=== PATIENT | female | born 1985 | race Caucasian/White ===

== ENCOUNTER → 2016-07-22 | Outpatient (CLI) | payer BC ==
[~2016-07-22] MED LIST: AMPH10CA3 PO; ETON1IMP2; LINA1CAP PO; NAPR-1169 PO; NXM/40 PO; ONDA4TAB46 PO; RANI150T3 PO
== END | disposition home or self-care (01) ==
LOC: C.PAPS 17:54
PROVIDERS: ATTEND Obstetrics & Gynecology
DX: Z01.419 Encounter for gynecological examination (general) (routine) without abnormal findings (principal)

== ENCOUNTER → 2016-07-22 | Outpatient (CLI) | payer BC ==
[2016-07-27 03:24] LABS: CHLAMYDIA TRACH RNA*** NOT DETECTED (NOT DETECTED); GC (NEIS GONORRHOEAE)RNA** NOT DETECTED (NOT DETECTED)
== END | disposition home or self-care (01) ==
LOC: C.LABSPEC 12:47
PROVIDERS: ATTEND Obstetrics & Gynecology
DX: Z11.3 Encounter for screening for infections with a predominantly sexual mode of transmission (principal)

== ENCOUNTER → 2017-01-10 | Day surgery (SDC) | payer BC ==
[2017-01-02 12:23] VITALS: BMI 32.0
[~2017-01-10] VITALS: Ht 172.7 cm; Wt 96.8 kg
[~2017-01-10] MED LIST changes: -ONDA4TAB46 PO
[2017-01-10 12:03] VITALS: Ht 172.7 cm; Wt 96.8 kg
[2017-01-10 15:17] VITALS: BP 136/87; PULSE 89; TEMP 36.7; O2SAT 100
--- NOTE | 2017-01-15 11:38 | OPERATIVE REPORT ---
DATE OF OPERATION: 01/10/2017 PROCEDURE PERFORMED: Lactulose bacterial overgrowth breath test. PRE-PROCEDURE DIAGNOSES: Bloating, abdominal discomfort, changes in bowel habits. 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 Baseline breath hygiene level was determined, this was 4 parts per million. Following a 10 gram dose of lactulose liquid, serial breath hydrogen was obtained. At 20 minutes - 8 ppm, 40 minutes - 8 ppm, 60 minute-8 ppm, 80 minutes - 21 ppm, 100 minutes - 55 ppm, 120 minutes - 62 ppm, 140 minutes - 68 ppm, and 160 minutes - 58 ppm. Bloating was produced from 40 minute exam point through completion. IMPRESSION: Overall, this represented a positive bacterial overgrowth breath test by lactulose testing. The patient's breath hydrogen would approximate at least a 20 part per million rise from baseline at 90 minutes. Results were discussed with the patient at the end of this procedure by me. The patient actually had improvement while on ciprofloxacin for recent urinary tract infection and therefore this may corroborate this finding today. The patient has no known drug allergies. PLAN: We will plan for rifaximin 550 mg 3 times daily for 14 days. The patient will also follow in GI clinic as previously scheduled. An Rx was provided. I attest to the content of the Intraoperative Record and any orders documented therein. Any exceptions are noted below. MTDD
== END | disposition home or self-care (01) ==
LOC: C.GI 11:36
PROVIDERS: ATTEND Internal Medicine Gastroenterology
DX: R14.0 Abdominal distension (gaseous) (principal); R10.9 Unspecified abdominal pain; R19.4 Change in bowel habit

== ENCOUNTER → 2017-06-28 | Outpatient (CLI) | payer BC ==
[~2017-06-28] MED LIST changes: +AMPH10TA2 PO; +CYM/30 PO; +DIVA500T3 PO; +ESOM1CAP34 PO; -ETON1IMP2; +ETON1IMP2 INTRAD; +LRS10 PO; +METH-307 PO; +MRLP17X; +MRLP527 PO; -NAPR-1169 PO; +NAPR-1231 PO; +NAPR-22 PO; +NRN/300 PO; +SUMA6KIT SQ; +TOPI1CAP12 PO; +TRAM-10 PO; +VERA180C2 PO
--- NOTE | 2017-06-28 18:07 | DIAGNOSTIC IMAGING REPORT ---
L-SPINE MIN 4 VIEWS ROUTINE CLINICAL HISTORY: 32 years-old Female presenting with M54.9 low back pain, history of microdiscectomy. TECHNIQUE: Frontal, bilateral oblique, lateral, and coned in lateral views of the lumbar spine were obtained. COMPARISON: CT of the abdomen and pelvis from 11/18/2016. FINDINGS: No scoliosis. Normal lumbar lordosis. Vertebral bodies maintain normal height and alignment. Mild intervertebral disc height loss at L5-S1, which may in part be developmental. No extensive degenerative change. Mild degenerative change suggested at L5-S1. Mild osseous neural foraminal narrowing may also be present at L5-S1. No compression deformity or evidence of subluxation. No pars defect. Postsurgical changes are not radiographically apparent. IMPRESSION: Mild focal degenerative change at L5-S1 with possible osseous neural foraminal narrowing. Electronically signed by: Edilson Collado M.D. 06/28/2017 6:05 PM Dictated Date/Time: 06/28/2017 6:04 PM
--- NOTE | 2017-06-28 18:16 | DIAGNOSTIC IMAGING REPORT ---
SI JOINTS 3 OR MORE VIEWS HISTORY: 32 years-old Female M54.9 acute low back pain with history of prior back surgery COMPARISON: Lumbar spine radiographs of same day TECHNIQUE: 3 views of the SI joints FINDINGS: Mild intervertebral disc space narrowing at L5-S1. The bilateral sacroiliac joints are within normal limits without fracture, significant joint space narrowing or erosive changes identified. Imaged bony pelvis appears intact. Probable phleboliths of the right hemipelvis. IMPRESSION: No acute fracture, subluxation or significant degenerative changes. The above report was generated using voice recognition software. It may contain grammatical, syntax or spelling errors. Electronically signed by: Jigar Cha M.D. 06/28/2017 6:14 PM Dictated Date/Time: 06/28/2017 6:13 PM
== END | disposition home or self-care (01) ==
LOC: C.RAD 17:05
PROVIDERS: ATTEND Family Medicine
DX: M54.5 Low back pain (principal)

== ENCOUNTER 2017-08-04 14:50 | Emergency (ER) | payer BC ==
[~2017-08-04] VITALS: Ht 172.7 cm; Wt 94.0 kg
[~2017-08-04 14:50] MED LIST changes: -AMPH10CA3 PO; -AMPH10TA2 PO; -CYM/30 PO; -DIVA500T3 PO; -ESOM1CAP34 PO; -ETON1IMP2 INTRAD; -LRS10 PO; -METH-307 PO; -MRLP17X; -MRLP527 PO; +NAPR-1169 PO; -NAPR-1231 PO; -NAPR-22 PO; -NRN/300 PO; -SUMA6KIT SQ; -TOPI1CAP12 PO; -TRAM-10 PO; -VERA180C2 PO
[2017-08-04 14:57] VITALS: TEMP 37.1; Ht 172.7 cm; Wt 94.0 kg
[2017-08-04] MEDS ORDERED: ONDANSETRON INJ 2 MG/ML 2 ML VIAL IV STA (17:40)
[2017-08-04] MEDS ORDERED: KETOROLAC TROMETHAMINE 30 MG/ML VIAL IV STA (17:40)
[2017-08-04] MEDS ORDERED: SODIUM CHLORIDE 0.9% 1000ML 1,000 ML IV STA (17:40)
[2017-08-04] MEDS ORDERED: MRLP17X (17:52)
--- NOTE | 2017-08-04 18:01 | EMERGENCY ROOM VISIT NOTE ---
History Report prepared by Bakari: Samantha Montoya Under the Supervision of: Dr. Baljinder Lees D.O. First contact with patient: 17:37 Chief Complaint: PAIN (GENERALIZED) Stated Complaint: neck/joint pain, head pressure, VISUAL DISTURBANCE History of Present Illness The patient is a 32 year old female who presents to the Emergency Room with complaints of persistent headache that began about a week ago. The patient states she has also been experiencing confusion, shoulder pain, vision changes, sore throat, facial tingling, and fevers of 102 degrees Fahrenheit. She denies any coughing, nausea, vomiting, or diarrhea. The patient states that she was recently placed on steroids for persistent back pain, noting it now radiates to her hips. She notes that she saw her PCP yesterday for a reevaluation of her back pain, noting she had a negative flu test. The patient states that she has not had her menstrual period in years because she has an implant in place. Source of History: patient Onset: about a week ago Position: other (global) Quality: other (headache) Timing: other (persistent) Associated Symptoms: + fevers (102 degrees Fahrenheit), + sorethroat Note: Associated symptoms include: confusion, shoulder pain, vision changes, and facial tingling. Review of Systems See HPI for pertinent positives & negatives. A total of 10 systems reviewed and were otherwise negative. Past Medical & Surgical Medical Problems: (1) Stomach problems Family History Cancer Diabetes mellitus Heart disease Hypertension Social History Smoking Status: Never Smoker Drug Use: none Marital Status: in relationship Housing Status: lives with significant other Occupation Status: employed Current/Historical Medications Scheduled Amphetamine-Dextroamphetamine 10MG (Adderall Xr 10MG), 10 MG PO BID Esomeprazole Magnesium (Nexium), 40 MG PO QAM Etonogestrel (Nexplanon), 1 DOSE CONTINOUS Scheduled PRN Naproxen (Naprosyn), 500 MG PO BID PRN for Migraine Miscellaneous Medications Polyethylene (Miralax) Allergies Coded Allergies: No Known Allergies (Verified , 08/04/17) Physical Exam Vital Signs Date Time Temp Pulse Resp B/P (MAP) Pulse Ox O2 Delivery O2 Flow Rate FiO2 08/04/17 20:30 78 18 101/67 98 Room Air 08/04/17 19:55 90 18 110/81 99 Room Air 08/04/17 19:33 84 20 118/76 96 Room Air 08/04/17 18:05 99 Room Air 08/04/17 17:50 100 20 118/76 98 Room Air 08/04/17 14:57 37.1 111 20 143/96 99 Room Air Physical Exam GENERAL: Patient is awake, alert, and in no acute distress. Patient is resting comfortably and somewhat anxious EYES: The conjunctivae are clear. The pupils are round and reactive. EARS, NOSE, MOUTH AND THROAT: The nose is without any evidence of any deformity. Mucous membranes are moist tongue is midline NECK: The neck is nontender and supple. RESPIRATORY: Normal respiratory effort is noted there is no evidence of wheezing rhonchi or rales CARDIOVASCULAR: Regular rate and rhythm noted there no murmurs rubs or gallops normal S1 normal S2 GASTROINTESTINAL: The abdomen is soft. Bowel sounds are present in all quadrants. Abdomen is nontender MUSCULOSKELETAL/EXTREMITIES: There is no evidence of gross deformity full range of motion is noted in the hips and shoulders SKIN: There is no obvious evidence of any rash. There are no petechiae, pallor or cyanosis noted. NEUROLOGIC: Patient is awake alert and oriented x3 strength is symmetric patellar reflexes are 2+ bilaterally Medical Decision & Procedures ER Provider Diagnostic Interpretation: Radiology results as stated below per my review and radiologist interpretation: CHEST 2 VIEWS ROUTINE CLINICAL HISTORY: Evaluate Fever/Sepsis dyspnea COMPARISON STUDY: No previous studies for comparison. FINDINGS: The bones soft tissues and hemidiaphragms are normal. The cardiomediastinal silhouette is normal. The lungs are clear. The pulmonary vasculature is normal. IMPRESSION: Negative chest. The above report was generated using voice recognition software. It may contain grammatical, syntax or spelling errors. Electronically signed by: Clement Cha M.D. 08/04/2017 7:47 PM Dictated Date/Time: 08/04/2017 7:47 PM HEAD WITHOUT CONTRAST (CT) CT DOSE: 601.98 mGy.cm HISTORY: Mental status change. Headache. LUIS TECHNIQUE: Multiaxial CT images of the head were performed without the use of intravenous contrast. A dose lowering technique was utilized adhering to the principles of ALARA. Comparison: None. Findings: The paranasal sinuses and mastoid air cells are clear. The calvarium and skull base are intact. The ventricles and sulci are within normal limits. There is no mass, hematoma, midline shift, or acute infarct. Impression: No acute intracranial abnormality. The above report was generated using voice recognition software. It may contain grammatical, syntax or spelling errors. Electronically signed by: Clement Cha M.D. 08/04/2017 6:48 PM Dictated Date/Time: 08/04/2017 6:47 PM Laboratory Results 08/04/17 18:00 Red Blood Count 4.77, Mean Corpuscular Volume 92.0, Mean Corpuscular Hemoglobin 32.5, Mean Corpuscular Hemoglobin Concent 35.3, Mean Platelet Volume 9.2, Neutrophils (%) (Auto) 63.7, Lymphocytes (%) (Auto) 27.6, Monocytes (%) (Auto) 6.7, Eosinophils (%) (Auto) 1.4, Basophils (%) (Auto) 0.2, Neutrophils # (Auto) 6.91, Lymphocytes # (Auto) 2.99, Monocytes # (Auto) 0.73, Eosinophils # (Auto) 0.15, Basophils # (Auto) 0.02 08/04/17 18:00 Test 08/04/17 18:00 08/04/17 18:15 08/04/17 18:20 08/04/17 20:10 White Blood Count 10.84 K/uL (4.8-10.8) Red Blood Count 4.77 M/uL (4.2-5.4) Hemoglobin 15.5 g/dL (12.0-16.0) Hematocrit 43.9 % (37-47) Mean Corpuscular Volume 92.0 fL (80-100) Mean Corpuscular Hemoglobin 32.5 pg (25-34) Mean Corpuscular Hemoglobin Concent 35.3 g/dl (32-36) Platelet Count 312 K/uL (130-400) Mean Platelet Volume 9.2 fL (7.4-10.4) Neutrophils (%) (Auto) 63.7 % Lymphocytes (%) (Auto) 27.6 % Monocytes (%) (Auto) 6.7 % Eosinophils (%) (Auto) 1.4 % Basophils (%) (Auto) 0.2 % Neutrophils # (Auto) 6.91 K/uL (1.4-6.5) Lymphocytes # (Auto) 2.99 K/uL (1.2-3.4) Monocytes # (Auto) 0.73 K/uL (0.11-0.59) Eosinophils # (Auto) 0.15 K/uL (0-0.5) Basophils # (Auto) 0.02 K/uL (0-0.2) RDW Standard Deviation 46.6 fL (36.4-46.3) RDW Coefficient of Variation 13.8 % (11.5-14.5) Immature Granulocyte % (Auto) 0.4 % Immature Granulocyte # (Auto) 0.04 K/uL (0.00-0.02) Erythrocyte Sedimentation Rate 15 mm/hr (0-21) Anion Gap 8.0 mmol/L (3-11) Est Creatinine Clear Calc Drug Dose 118.8 ml/min Estimated GFR () 111.5 Estimated GFR (Non- 96.2 BUN/Creatinine Ratio 5.1 (10-20) Calcium Level 9.2 mg/dl (8.5-10.1) Total Bilirubin 0.5 mg/dl (0.2-1) Direct Bilirubin 0.1 mg/dl (0-0.2) Aspartate Amino Transf (AST/SGOT) 22 U/L (15-37) Alanine Aminotransferase (ALT/SGPT) 43 U/L (12-78) Alkaline Phosphatase 65 U/L (45-117) Total Protein 7.4 gm/dl (6.4-8.2) Albumin 3.8 gm/dl (3.4-5.0) Human Chorionic Gonadotropin, Qual NEG (NEG) Arterial Blood pH 7.47 (7.35-7.45) Arterial Blood Partial Pressure CO2 36 mmHg (35-46) Arterial Blood Partial Pressure O2 90 mm/Hg (80-95) Arterial Blood HCO3 26 mmol/L (19-24) Arterial Blood Oxygen Saturation 97.3 % (90-95) Arterial Blood Base Excess 2.2 mEq/L (-9-1.8) Arterial Blood Gas Delivery ROOM AIR Nathan Test POS (POS) Urine Color YELLOW Urine Appearance CLEAR (CLEAR) Urine pH 6.5 (4.5-7.5) Urine Specific [place] 1.014 (1.000-1.030) Urine Protein NEG (NEG) Urine Glucose (UA) NEG (NEG) Urine Ketones NEG (NEG) Urine Occult Blood NEG (NEG) Urine Nitrite NEG (NEG) Urine Bilirubin NEG (NEG) Urine Urobilinogen NEG (NEG) Urine Leukocyte Esterase NEG (NEG) CSF Color COLORLESS CSF Appearance CLEAR CSF WBC 0 /uL (0-5) CSF RBC 0 /uL (0) CSF Xanthrochromic NO XANTHOCHROMIA CSF Cell Count Tube # 4 CSF Chemistry Tube # 2 CSF Glucose 54 mg/dl (40-70) CSF Total Protein 37.3 mg/dl (15.0-45.0) Laboratory results per my review. Medications Administered Medications (Trade) Dose Ordered Sig/Taras Route Start Time Stop Time Status Last Admin Dose Admin Ketorolac Tromethamine (Toradol Inj) 30 mg NOW STAT IV 08/04/17 17:40 08/04/17 17:42 DC 08/04/17 18:14 30 MG Sodium Chloride 1,000 ml @ 999 mls/hr Q1H1M STAT IV 08/04/17 17:40 08/04/17 18:40 DC 08/04/17 17:40 999 MLS/HR Ondansetron HCl (Zofran Inj) 4 mg NOW STAT IV 08/04/17 17:40 08/04/17 17:42 DC 08/04/17 18:14 4 MG Promethazine HCl 12.5 mg/Sodium Chloride 50.5 ml @ 204 mls/hr NOW STAT IV 08/04/17 20:13 08/04/17 20:27 DC 08/04/17 20:28 204 MLS/HR Procedure Lumbar Puncture Indication: headache. Verbal consent was obtained after the risks and benefits were explained, including but not limited to headache, bleeding/clotting, scarring, infection, pain, and bone/joint/nerve damage. At this time, the risks of the procedure are less than the risks of NOT performing the procedure. A time out was taken and the correct patient and site identified. The patient was placed in the seated position and the back was prepped with betadine and draped in the standard fashion. The L3 intervertebral space was identified, anesthetized locally with 1 % lidocaine without epinephrine, and the spinal needle was inserted through the skin with the bevel parallel to the dural fibers. The needle was carefully advanced into the lumbar cistern and 4 tubes of clear CSF was obtained. The stylet was replaced and the needle was removed. A bandaid was placed and the patient was placed in the supine position. The patient tolerated the procedure well and there were no complications. ED Course 1734: The patient was evaluated in room A2. A complete history and physical examination were performed. 1739: Ordered Zofran Inj 4mg IV, Sodium Chloride 1000ml @ 999 mls/hr IV, and Toradol Inj 30mg IV. 2012: Promethazine HCL 12.5 mg/Sodium Chloride 50.5 ml@ 204 mls/hr IV. 2051: Upon reevaluation, the patient is resting comfortably. I discussed the results and treatment plan with her. She verbalized agreement of the treatment plan. The patient was discharged home. Medical Decision Triage Nursing notes reviewed. The patient's history was concerning for headache. Differential diagnosis: Etiologies such as migraine headache, meningitis, sinusitis, CO exposure, ICH, SAH, infection, tumor, headache, sinus thrombosis, arterial dissection, as well as others were entertained. The patient is a 32-year-old female who presented to the emergency department for an evaluation of headache. The patient also describes joint aches and muscle aches. She was seen by her primary care physician initially and told to go the emergency department if symptoms worsen. The patient was trying over-the -counter medications without relief. She did not have meningismus or focal neurologic deficit but because of her history of recent fever as well as recent steroid use a CT of the brain as well as a lumbar puncture were obtained. The patient was treated with IV fluids IV pain medicine and IV antiemetics. On subsequent reevaluation she was feeling much better. I discussed patient's laboratory and radiographic studies with her. She was encouraged to rest and avoid any strenuous activity. She was also encouraged to continue all medications as prescribed and follow-up with her primary care physician as soon as possible. Otherwise she was encouraged to return to the emergency department immediately if symptoms change worsening of the need arises. Medication Reconcilliation Current Medication List: was personally reviewed by me Blood Pressure Screening Patient's blood pressure: Normal blood pressure Blood pressure disposition: Did not require urgent referral Impression Primary Impression: Headache Additional Impression: Viral syndrome Scribe Attestation The scribe's documentation has been prepared under my direction and personally reviewed by me in its entirety. I confirm that the note above accurately reflects all work, treatment, procedures, and medical decision making performed by me. Departure Information Dispostion Home / Self-Care Referrals Bucky Talamantes M.D. (PCP) Forms HOME CARE DOCUMENTATION FORM, IMPORTANT VISIT INFORMATION, WORK / SCHOOL INSTRUCTIONS Patient Instructions My [facility] [employer] Additional Instructions Rest and avoid any strenuous activity. Drink plenty of clear liquids. Continue using Motrin and Tylenol as directed for symptomatic relief. Return to the emergency department immediately symptoms change worsening the need arises. Problem Qualifiers Primary Impression: Headache Headache type: unspecified Headache chronicity pattern: unspecified pattern Intractability: not intractable Qualified Codes: R51 - Headache
[2017-08-04 18:05] VITALS: O2SAT 99
[2017-08-04 18:20] LABS: BASO % 0.2 %; BASO ABS # 0.02 K/uL (0-0.2); EOS % 1.4 %; EOS ABS # 0.15 K/uL (0-0.5); HEMATOCRIT 43.9 % (37-47); HEMOGLOBIN 15.5 g/dL (12.0-16.0); IG# 0.04 K/uL (0.00-0.02); LYMPH % 27.6 %; LYMPH ABS # 2.99 K/uL (1.2-3.4); MEAN CORPUSCULAR HEMOGLOBIN 32.5 pg (25-34); MEAN CORPUSCULAR HGB CONC 35.3 g/dl (32-36); MEAN PLATELET VOLUME 9.2 fL (7.4-10.4); MONO % 6.7 %; MONO ABS # 0.73 K/uL (0.11-0.59); NEUT % 63.7 %; NEUT ABS # 6.91 K/uL (1.4-6.5); PLATELET COUNT 312 K/uL (130-400); RED CELL DISTRIBUTION WIDTH CV 13.8 % (11.5-14.5); RED CELL DISTRIBUTION WIDTH SD 46.6 fL (36.4-46.3); WHITE BLOOD COUNT 10.84 K/uL (4.8-10.8)
[2017-08-04 18:37] LABS: ALBUMIN 3.8 gm/dl (3.4-5.0); CALCIUM 9.2 mg/dl (8.5-10.1); CREATININE 0.8 mg/dl (0.60-1.20)
[2017-08-04 18:40] LABS: TOTAL PROTEIN 7.4 gm/dl (6.4-8.2)
--- NOTE | 2017-08-04 18:50 | DIAGNOSTIC IMAGING REPORT ---
HEAD WITHOUT CONTRAST (CT) CT DOSE: 601.98 mGy.cm HISTORY: Mental status change. Headache. LUIS TECHNIQUE: Multiaxial CT images of the head were performed without the use of intravenous contrast. A dose lowering technique was utilized adhering to the principles of ALARA. Comparison: None. Findings: The paranasal sinuses and mastoid air cells are clear. The calvarium and skull base are intact. The ventricles and sulci are within normal limits. There is no mass, hematoma, midline shift, or acute infarct. Impression: No acute intracranial abnormality. The above report was generated using voice recognition software. It may contain grammatical, syntax or spelling errors. Electronically signed by: Clement Cha M.D. 08/04/2017 6:48 PM Dictated Date/Time: 08/04/2017 6:47 PM
--- NOTE | 2017-08-04 19:48 | DIAGNOSTIC IMAGING REPORT ---
CHEST 2 VIEWS ROUTINE CLINICAL HISTORY: Evaluate Fever/Sepsis dyspnea COMPARISON STUDY: No previous studies for comparison. FINDINGS: The bones soft tissues and hemidiaphragms are normal. The cardiomediastinal silhouette is normal. The lungs are clear. The pulmonary vasculature is normal. IMPRESSION: Negative chest. The above report was generated using voice recognition software. It may contain grammatical, syntax or spelling errors. Electronically signed by: Clement Cha M.D. 08/04/2017 7:47 PM Dictated Date/Time: 08/04/2017 7:47 PM
[2017-08-04] MEDS ORDERED: PROMETHAZINE HCL INJ 12.5 MG in SODIUM CHLORIDE 0.9% 50ML 50 ML IV STA (20:13)
[2017-08-04 20:46] LABS: CSF GLUCOSE 54 mg/dl (40-70); CSF TOTAL PROTEIN 37.3 mg/dl (15.0-45.0)
[2017-08-04 21:25] VITALS: BP 108/66; PULSE 78; O2SAT 98
[2017-08-06] MEDS ORDERED: ETON1IMP2 INTRAD (04:24)
[2017-08-06] MEDS ORDERED: AMPH10CA3 PO (12:23)
[2017-08-06] MEDS ORDERED: NAPR500T3 PO (21:21)
[2017-08-06] MEDS ORDERED: ESOM1CAP34 PO (21:21)
[2017-08-06] MEDS ORDERED: MRLP527 PO (21:21)
== END 2017-08-04 21:27 | disposition home or self-care (01) ==
LOC: C.EDB 14:53 → C.EDA 21:27
DX: R51 Headache (principal); B34.9 Viral infection, unspecified; M25.519 Pain in unspecified shoulder; Z97.5 Presence of (intrauterine) contraceptive device; Z83.3 Family history of diabetes mellitus; Z82.49 Family history of ischemic heart disease and other diseases of the circulatory system

== ENCOUNTER 2017-08-06 20:14 | Emergency (ER) | payer BC ==
[~2017-08-06] VITALS: Ht 172.7 cm; Wt 93.9 kg
[~2017-08-06 20:14] MED LIST changes: -LINA1CAP PO; +MRLP17X; -RANI150T3 PO
[2017-08-06 20:19] VITALS: TEMP 36.9; Ht 172.7 cm; Wt 93.9 kg
[2017-08-06] MEDS ORDERED: KETOROLAC TROMETHAMINE 30 MG/ML VIAL IV STA (21:31)
[2017-08-06] MEDS ORDERED: PROCHLORPERAZINE 5 MG/ML 2 ML VIAL IV STA (21:31)
[2017-08-06] MEDS ORDERED: SODIUM CHLORIDE 0.9% 1000ML 1,000 ML IV STA (21:31)
[2017-08-06] MEDS ORDERED: DEXAMETHASONE INJ 10 MG in SYRINGE 0 ML IV STA (21:31)
[2017-08-06] MEDS ORDERED: DiphenhydrAMINE HCL 50 MG/ML VIAL IV STA (21:31)
[2017-08-06 21:40] LABS: BASO % 0.2 %; BASO ABS # 0.02 K/uL (0-0.2); EOS % 2.1 %; HEMATOCRIT 44.2 % (37-47); HEMOGLOBIN 15.2 g/dL (12.0-16.0); IG# 0.05 K/uL (0.00-0.02); LYMPH % 34.8 %; MEAN CELL VOLUME 93.2 fL (80-100); MEAN CORPUSCULAR HEMOGLOBIN 32.1 pg (25-34); MEAN CORPUSCULAR HGB CONC 34.4 g/dl (32-36); MEAN PLATELET VOLUME 9.2 fL (7.4-10.4); MONO % 7.4 %; PLATELET COUNT 300 K/uL (130-400); RED CELL DISTRIBUTION WIDTH CV 13.8 % (11.5-14.5); RED CELL DISTRIBUTION WIDTH SD 47.4 fL (36.4-46.3); WHITE BLOOD COUNT 9.47 K/uL (4.8-10.8)
[2017-08-06] MEDS ORDERED: DEXAMETHASONE **PF** INJ 10 MG/ML VIAL ONE (21:41)
[2017-08-06] MEDS ORDERED: MoRPHine SULFATE 4 MG/ML 1 ML CARP\\VIAL IV PRN (21:45)
[2017-08-06 21:55] LABS: CALCIUM 8.8 mg/dl (8.5-10.1); CREATININE 0.82 mg/dl (0.60-1.20); POTASSIUM 3.7 mmol/L (3.5-5.1)
[2017-08-06] MEDS ORDERED: OPTIRAY 320 IV PRN (22:00)
--- NOTE | 2017-08-06 22:26 | DIAGNOSTIC IMAGING REPORT ---
NECK ANGIO WITH CONTRAST HISTORY: Headache pain TECHNIQUE: Multiaxial CT images of the neck were performed following the intravenous administration of contrast to evaluate the major cervical vessels. Maximum intensity projection images were also obtained. All measurements were calculated based on NASCET criteria. A dose lowering technique was utilized adhering to the principles of ALARA. COMPARISON STUDY: None. FINDINGS: The aortic arch and proximal great vessels are widely patent. There is no significant stenosis, occlusion, or dissection identified within the bilateral common carotid, internal carotid, or vertebral arteries. IMPRESSION: No significant stenosis, occlusion, or dissection identified within the carotid or vertebral arteries. Normal study The above report was generated using voice recognition software. It may contain grammatical, syntax or spelling errors. Electronically signed by: Clement Cha M.D. 08/06/2017 10:24 PM Dictated Date/Time: 08/06/2017 10:22 PM
--- NOTE | 2017-08-06 22:29 | DIAGNOSTIC IMAGING REPORT ---
ANGIOGRAPHY HEAD COMBO HISTORY: Pain SEVERE HEADACHE TECHNIQUE: Multiaxial CT images of the head were performed both before and after the intravenous administration of contrast to evaluate the major cerebral vessels. Maximum intensity projection images were also obtained. A dose lowering technique was utilized adhering to the principles of ALARA. COMPARISON: None. FINDINGS: There is no mass, hematoma, midline shift, or acute infarct. Visualized intracranial internal carotid arteries, distal vertebral arteries, and basilar artery are widely patent. There is no significant stenosis, occlusion, or aneurysm seen within the bilateral ACAs, MCAs, or java j2ee architect. Slight ectasia tip of the basilar with no evidence for aneurysm IMPRESSION: No significant stenosis, occlusion, or aneurysm within the [place]. The above report was generated using voice recognition software. It may contain grammatical, syntax or spelling errors. Electronically signed by: Clement Cha M.D. 08/06/2017 10:28 PM Dictated Date/Time: 08/06/2017 10:26 PM
[2017-08-06 23:18] VITALS: BP 110/69; PULSE 87; O2SAT 98
--- NOTE | 2017-08-06 23:26 | EMERGENCY ROOM VISIT NOTE ---
History Report prepared by Bakari: Gayathri Overton Under the Supervision of: Dr. Memo Lincoln M.D. First contact with patient: 21:25 Chief Complaint: HEADACHE Stated Complaint: SEVERE LUIS,L ARM NUMBNESS,NECK PAIN Nursing Triage Summary: Patient notes she has had a headache since monday, was seen here in ED for it. Had lumbar puncture when she was here and headache is now worse than it was. Notes that lying down doesn't help. History of Present Illness The patient is a 32 year old female who presents to the Emergency Room with complaints of worsening headache starting 1 week ago. The patient was seen in the ED 2 days ago. She had a lumbar puncture, brain CT, and lab work which were fairly unremarkable. She was diagnosed with a viral illness. Since her previous visit, her headache has been worsening. She currently rates her discomfort as a 10/10 in severity. Her headache prior to her previous visit was on the right, but has now moved to the left side. Her headache is worse with standing. Her headache does improve with lying down. She tried some caffeine today to no significant relief. She has some nausea and numbness to the 4th and 5th fingers of her left hand. The light does bother her. She denies any fever, vomiting, urinary symptoms, rhinorrhea, or cough. She denies any head injury. She does have a history of migraines, but they have never been this severe. Source of History: patient Onset: 1 week ago Position: head Symptom Intensity: 10/10 Quality: ache Timing: worsening Modifying Factors (Worsening): other (standing) Modifying Factors (Relieving): other (lying down) Associated Symptoms: + nausea, + numbness, No fevers, No cough, No vomiting , No urinary symptoms Review of Systems See HPI for pertinent positives & negatives. A total of 10 systems reviewed and were otherwise negative. Past Medical & Surgical Medical Problems: (1) Stomach problems Family History Cancer Diabetes mellitus Heart disease Hypertension Social History Smoking Status: Current Every Day Smoker Drug Use: none Marital Status: in relationship Housing Status: lives with significant other Occupation Status: employed Current/Historical Medications Scheduled Amphetamine-Dextroamphetamine 10MG (Adderall Xr 10MG), 10 MG PO BID Esomeprazole Magnesium (Esomeprazole Magnesium), 40 MG PO QAM Etonogestrel (Nexplanon), 68 MG INTRAD CONTINOUS Polyethylene (Polyethylene Glycol 3350), 17 GM PO DAILY Scheduled PRN Naproxen (Naproxen), 500 MG PO BID PRN for Migraine Allergies Coded Allergies: No Known Allergies (Verified , 08/04/17) Physical Exam Vital Signs Date Time Temp Pulse Resp B/P (MAP) Pulse Ox O2 Delivery O2 Flow Rate FiO2 08/06/17 23:18 87 20 110/69 98 Room Air 08/06/17 22:36 85 20 112/84 98 Room Air 08/06/17 21:49 92 20 113/80 98 Room Air 08/06/17 20:43 99 08/06/17 20:19 36.9 122 20 131/94 98 Room Air Physical Exam GENERAL: Patient is in no acute distress. HEENT: No acute trauma, normocephalic atraumatic, mucous membranes moist, no nasal congestion, no scleral icterus. Pupils equal and reactive to light. NECK: No stridor, no adenopathy, no meningismus, trachea is midline. LUNGS: Clear to auscultation bilaterally, no wheeze, no rhonchi, breath sounds equal. HEART: Without murmurs gallops or rubs, regular rate and rhythm. ABDOMEN: Soft, nontender, bowel sounds positive, no hernias, no peritonitis. EXTREMITIES: No cyanosis or edema, full range of motion of all the joints without pain or difficulty, no signs for acute trauma. NEUROLOGIC: Oriented x 3, no acute motor or sensory deficits, no focal weakness. No cerebellar deficits. SKIN: No rash, no jaundice, no diaphoresis Medical Decision & Procedures ER Provider Diagnostic Interpretation: Radiology results as stated below per my review and radiologist interpretation: ANGIOGRAPHY HEAD COMBO HISTORY: Pain SEVERE HEADACHE TECHNIQUE: Multiaxial CT images of the head were performed both before and after the intravenous administration of contrast to evaluate the major cerebral vessels. Maximum intensity projection images were also obtained. A dose lowering technique was utilized adhering to the principles of ALARA. COMPARISON: None. FINDINGS: There is no mass, hematoma, midline shift, or acute infarct. Visualized intracranial internal carotid arteries, distal vertebral arteries, and basilar artery are widely patent. There is no significant stenosis, occlusion, or aneurysm seen within the bilateral ACAs, MCAs, or pin puller. Slight ectasia tip of the basilar with no evidence for aneurysm IMPRESSION: No significant stenosis, occlusion, or aneurysm within the [place]. The above report was generated using voice recognition software. It may contain grammatical, syntax or spelling errors. Electronically signed by: Clement Cha M.D. 08/06/2017 10:28 PM Dictated Date/Time: 08/06/2017 10:26 PM NECK ANGIO WITH CONTRAST HISTORY: Headache pain TECHNIQUE: Multiaxial CT images of the neck were performed following the intravenous administration of contrast to evaluate the major cervical vessels. Maximum intensity projection images were also obtained. All measurements were calculated based on NASCET criteria. A dose lowering technique was utilized adhering to the principles of ALARA. COMPARISON STUDY: None. FINDINGS: The aortic arch and proximal great vessels are widely patent. There is no significant stenosis, occlusion, or dissection identified within the bilateral common carotid, internal carotid, or vertebral arteries. IMPRESSION: No significant stenosis, occlusion, or dissection identified within the carotid or vertebral arteries. Normal study The above report was generated using voice recognition software. It may contain grammatical, syntax or spelling errors. Electronically signed by: Clement Cha M.D. 08/06/2017 10:24 PM Dictated Date/Time: 08/06/2017 10:22 PM Laboratory Results 08/06/17 20:40 Red Blood Count 4.74, Mean Corpuscular Volume 93.2, Mean Corpuscular Hemoglobin 32.1, Mean Corpuscular Hemoglobin Concent 34.4, Mean Platelet Volume 9.2, Neutrophils (%) (Auto) 55.0, Lymphocytes (%) (Auto) 34.8, Monocytes (%) (Auto) 7.4, Eosinophils (%) (Auto) 2.1, Basophils (%) (Auto) 0.2, Neutrophils # (Auto) 5.20, Lymphocytes # (Auto) 3.30, Monocytes # (Auto) 0.70, Eosinophils # (Auto) 0.20, Basophils # (Auto) 0.02 08/06/17 20:40 Test 08/06/17 20:40 White Blood Count 9.47 K/uL (4.8-10.8) Red Blood Count 4.74 M/uL (4.2-5.4) Hemoglobin 15.2 g/dL (12.0-16.0) Hematocrit 44.2 % (37-47) Mean Corpuscular Volume 93.2 fL (80-100) Mean Corpuscular Hemoglobin 32.1 pg (25-34) Mean Corpuscular Hemoglobin Concent 34.4 g/dl (32-36) Platelet Count 300 K/uL (130-400) Mean Platelet Volume 9.2 fL (7.4-10.4) Neutrophils (%) (Auto) 55.0 % Lymphocytes (%) (Auto) 34.8 % Monocytes (%) (Auto) 7.4 % Eosinophils (%) (Auto) 2.1 % Basophils (%) (Auto) 0.2 % Neutrophils # (Auto) 5.20 K/uL (1.4-6.5) Lymphocytes # (Auto) 3.30 K/uL (1.2-3.4) Monocytes # (Auto) 0.70 K/uL (0.11-0.59) Eosinophils # (Auto) 0.20 K/uL (0-0.5) Basophils # (Auto) 0.02 K/uL (0-0.2) RDW Standard Deviation 47.4 fL (36.4-46.3) RDW Coefficient of Variation 13.8 % (11.5-14.5) Immature Granulocyte % (Auto) 0.5 % Immature Granulocyte # (Auto) 0.05 K/uL (0.00-0.02) Anion Gap 7.0 mmol/L (3-11) Est Creatinine Clear Calc Drug Dose 115.8 ml/min Estimated GFR () 108.2 Estimated GFR (Non- 93.4 BUN/Creatinine Ratio 7.3 (10-20) Calcium Level 8.8 mg/dl (8.5-10.1) Human Chorionic Gonadotropin, Qual NEG (NEG) Lyme Disease IgG Antibody NEG (NEG) Lyme Disease IgM Antibody NEG (NEG) Laboratory results reviewed by me. Medications Administered Medications (Trade) Dose Ordered Sig/Taras Route Start Time Stop Time Status Last Admin Dose Admin Prochlorperazine Edisylate (Compazine Inj) 10 mg NOW STAT IV 08/06/17 21:31 08/06/17 21:35 DC 08/06/17 21:42 10 MG Sodium Chloride 1,000 ml @ 999 mls/hr Q1H1M STAT IV 08/06/17 21:31 08/06/17 22:31 DC 08/06/17 21:43 999 MLS/HR Morphine Sulfate (MoRPHine SULFATE INJ) 4 mg Q15M PRN IV 08/06/17 21:45 08/07/17 00:22 DC 08/06/17 21:42 4 MG Ketorolac Tromethamine (Toradol Inj) 30 mg NOW STAT IV 08/06/17 21:31 08/06/17 21:35 DC 08/06/17 21:42 30 MG Diphenhydramine HCl (Benadryl Inj) 50 mg NOW STAT IV 08/06/17 21:31 08/06/17 21:35 DC 08/06/17 21:42 50 MG Dexamethasone Sodium Phosphate (Dexamethasone Inj Pf) 10 mg STK-MED ONCE .ROUTE 08/06/17 21:41 08/06/17 21:42 DC 08/06/17 21:43 10 MG Oxycodone HCl (Roxicodone Immediate Rel 5MG Home Pack) 1 homepack UD ONCE PO 08/06/17 23:30 08/06/17 23:31 DC 08/06/17 23:22 1 HOMEPACK ED Course 6: The patient was evaluated in room C9. A complete history and physical exam was performed. 1: Benadryl Inj 50 mg IV, Toradol Inj 30 mg IV, NSS 1000 ml @ 999 mls/hr IV, Compazine Inj 10 mg IV, Dexamethasone Sodium Phosphate 10 mg IV. 5: Morphine Sulfate 4 mg IV. 2315: Reevaluated the patient. She is feeling better. Discussed results and discharge instructions: She verbalized understanding and agreement. The patient is ready for discharge. 2330: Oxycodone HCl 1 homepack PO. Medical Decision Differential diagnoses considered include intracranial bleeding, aneurysm, dissection, spinal headache, migraine headache, intracranial mass or tumor, viral illness, meningitis, lyme disease. There is no leukocytosis or concerning anemia. No significant electrolyte abnormality or kidney failure. Lyme disease testing is negative. CT angiography of the neck is negative for dissection. CT angiography of the brain does not show any evidence for aneurysm. On my exam, there was no focal neurologic deficit. The patient was not febrile or toxic. There was no meningismus. Patient received IV saline, IV Decadron, IV Toradol, IV Compazine, IV Benadryl and IV morphine. She feels improved. The patient feels markedly improved. She would like to be discharged, I think this is reasonable. I suspect she has a migraine headache coupled with a possible subtle spinal headache from the LP a few days ago. As she is feeling improved, she is being discharged. Rest and hydration were encouraged. She was given an oxycodone home pack to use for severe pain. If things are worsening, she will return. Medication Reconcilliation Current Medication List: was personally reviewed by me Blood Pressure Screening Patient's blood pressure: Normal blood pressure Blood pressure disposition: Did not require urgent referral Impression Primary Impression: Migraine headache Additional Impression: History of lumbar puncture Scribe Attestation The scribe's documentation has been prepared under my direction and personally reviewed by me in its entirety. I confirm that the note above accurately reflects all work, treatment, procedures, and medical decision making performed by me. Departure Information Dispostion Home / Self-Care Referrals Bucky Talamantes M.D. (PCP) Forms HOME CARE DOCUMENTATION FORM, IMPORTANT VISIT INFORMATION Patient Instructions My [facility] Additional Instructions use naproxen as before fluids rest oxy ir 1 tab every 4 hours for severe pain return for uncontrolled symptoms or if not continuing to improve imaging and lab testing today was all ok Problem Qualifiers
[2017-08-06] MEDS ORDERED: OXYCODONE IR HOME PACK PO ONE (23:30)
[2017-08-09] MEDS ORDERED: ETON1IMP2 INTRAD (04:24)
[2017-08-09] MEDS ORDERED: AMPH10CA3 PO (12:23)
== END 2017-08-06 23:26 | disposition home or self-care (01) ==
LOC: C.EDB 20:15 → C.EDC 23:26
DX: G43.909 Migraine, unspecified, not intractable, without status migrainosus (principal); Z98.890 Other specified postprocedural states; F17.210 Nicotine dependence, cigarettes, uncomplicated; Z80.9 Family history of malignant neoplasm, unspecified; Z83.3 Family history of diabetes mellitus; Z82.49 Family history of ischemic heart disease and other diseases of the circulatory system; Z79.899 Other long term (current) drug therapy; Z79.3 Long term (current) use of hormonal contraceptives

== ENCOUNTER 2017-08-09 18:22 | Emergency (ER) | payer BC ==
[~2017-08-09] VITALS: Ht 172.7 cm; Wt 94.2 kg
[~2017-08-09 18:22] MED LIST changes: +AMPH10CA3 PO; +ETON1IMP2 INTRAD; -MRLP17X; -NAPR-1169 PO; -NXM/40 PO
[2017-08-09 18:36] VITALS: TEMP 36.7; Ht 172.7 cm; Wt 94.2 kg
[2017-08-09] MEDS ORDERED: DiphenhydrAMINE HCL 50 MG/ML VIAL IV STA (19:24)
[2017-08-09] MEDS ORDERED: METOCLOPRAMIDE HCL INJ 5 MG/ML 2 ML VIAL IV STA (19:24)
[2017-08-09] MEDS ORDERED: KETOROLAC TROMETHAMINE 30 MG/ML VIAL IV STA (19:24)
[2017-08-09] MEDS ORDERED: SODIUM CHLORIDE 0.9% 1000ML 2,000 ML IV STA (19:24)
[2017-08-09] MEDS ORDERED: TRAM-10 PO (19:37)
[2017-08-09] MEDS ORDERED: VERA180C2 PO (19:37)
--- NOTE | 2017-08-09 19:39 | EMERGENCY ROOM VISIT NOTE ---
History Report prepared by Bakari: Mariah Estevez Under the Supervision of: Dr. Omega Schaefer M.D. First contact with patient: 19:08 Chief Complaint: ILLNESS Stated Complaint: LUIS, COLD, BACK THROBBING/NUMB, NAUSEA History of Present Illness The patient is a 32 year old female who presents to the Emergency Room with complaints of persistent headaches since August 01, 2017. She notes the pain is on the top of her head and at the base of the back of her head. She currently rates her pain a 10/10 in severity. She reports light sensitivity. She has had a TBI in the past and has a history of migraines associated with the TBI. She contacted her neurologist yesterday and was prescribed Verapamil and Tramadol, though no relief. She called her neurologist again and was advised to come to the ED for evaluation. She was recently seen in the ED August 04, 2017 for headaches. Her associated symptoms were vision changes, sore throat, neck soreness, and facial tingling at that time. Her WBC was 10. She had a LP and her CSF showed no WBC, no xanthochromia, normal glucose, and normal protein. She also had a negative brain CT. She returned to the ED August 06, 2017 for headaches. Her WBC was 9. She had a Lyme screen that was negative at that time. She reports the blurry vision and neck soreness has resolved. She currently reports nausea, though no vomiting. She denies any fevers, chills, body aches, coughs, congestion. She denies any urinary symptoms. She notes tingling sensations in her arm, legs, and back. She notes she developed back pain in April 2017. She has a history of back surgery. She was prescribed Prednisone and has completed the treatment. She reports developing the headaches after the Prednisone treatment was completed. She denies any chest pain or shortness of breath. She is a current smoker and smokes half a pack of cigarettes a day. She denies any drug use or alcohol use. Source of History: patient Onset: since August 01, 2017 Position: head Symptom Intensity: 10/10 Quality: ache Timing: other (persistent) Associated Symptoms: + nausea, No fevers, No chills, No cough, No chest pain , No SOB, No vomiting, No urinary symptoms Note: She notes light sensitivity and tingling sensation in arms, legs, and back. She denies any body aches or congestion. Review of Systems See HPI for pertinent positives and negatives. A total of ten systems were reviewed and were otherwise negative. Past Medical & Surgical Medical Problems: (1) Stomach problems Family History Cancer Diabetes mellitus Heart disease Hypertension Social History Smoking Status: Current Every Day Smoker (1/2 ppd) Smokeless Tobacco Use: No Alcohol Use: none Drug Use: none Marital Status: in relationship Housing Status: lives with significant other Occupation Status: employed Current/Historical Medications Scheduled Amphetamine-Dextroamphetamine 10MG (Adderall Xr 10MG), 10 MG PO BID Esomeprazole Magnesium (Esomeprazole Magnesium), 40 MG PO QAM Etonogestrel (Nexplanon), 68 MG INTRAD CONTINOUS Polyethylene (Polyethylene Glycol 3350), 17 GM PO DAILY Verapamil Hcl (Verapamil Hcl Er), 180 MG PO DAILY Scheduled PRN Naproxen (Naproxen), 500 MG PO BID PRN for Migraine Tramadol (Ultram), 50 MG PO BID PRN for Severe Headache Allergies Coded Allergies: No Known Allergies (Verified , 08/04/17) Physical Exam Vital Signs Date Time Temp Pulse Resp B/P (MAP) Pulse Ox O2 Delivery O2 Flow Rate FiO2 08/09/17 22:00 86 124/76 98 08/09/17 18:36 36.7 121 16 146/93 99 Room Air Physical Exam GENERAL: Awake, alert, uncomfortable-appearing, no distress HENT: Normocephalic, atraumatic. TM's normal. Oropharynx dry mucus membranes. EYES: PERRL. EOMI. Normal conjunctiva. Sclera non-icteric. NECK: Supple. No nuchal rigidity. FROM. No JVD or bruit. No meningismus. RESPIRATORY: CTA CARDIAC: RRR. No murmur. ABDOMEN: Soft, non distended. No tenderness to palpation. No rebound or guarding. No masses. RECTAL: Deferred. MUSCULOSKELETAL: Unremarkable. No edema. No discoloration. Gross motor strength symmetric. NEURO: Cranial nerves 2-12 grossly intact. Normal sensorium. No sensory or motor deficits noted. Speech normal. No pronator drift. Normal cerebellar function with [id number], alternating palms, apsv-bo-glnt. SKIN: No rash or jaundice noted. LYMPH: No adenopathy. Medical Decision & Procedures Laboratory Results 08/09/17 19:40 Red Blood Count 4.82, Mean Corpuscular Volume 91.7, Mean Corpuscular Hemoglobin 31.7, Mean Corpuscular Hemoglobin Concent 34.6, Mean Platelet Volume 9.1, Neutrophils (%) (Auto) 66.7, Lymphocytes (%) (Auto) 25.2, Monocytes (%) (Auto) 6.4, Eosinophils (%) (Auto) 1.2, Basophils (%) (Auto) 0.2, Neutrophils # (Auto) 8.40, Lymphocytes # (Auto) 3.17, Monocytes # (Auto) 0.81, Eosinophils # (Auto) 0.15, Basophils # (Auto) 0.03 08/09/17 19:40 Test 08/09/17 19:30 08/09/17 19:35 08/09/17 19:40 Urine Color YELLOW Urine Appearance CLEAR (CLEAR) Urine pH 5.5 (4.5-7.5) Urine Specific [place] 1.010 (1.000-1.030) Urine Protein NEG (NEG) Urine Glucose (UA) NEG (NEG) Urine Ketones NEG (NEG) Urine Occult Blood NEG (NEG) Urine Nitrite NEG (NEG) Urine Bilirubin NEG (NEG) Urine Urobilinogen NEG (NEG) Urine Leukocyte Esterase NEG (NEG) Urine Test NEG (NEG) Influenza Type A (RT-PCR) Neg for Influ A (NEG) Influenza Type B (RT-PCR) Neg for Influ B (NEG) White Blood Count 12.60 K/uL (4.8-10.8) Red Blood Count 4.82 M/uL (4.2-5.4) Hemoglobin 15.3 g/dL (12.0-16.0) Hematocrit 44.2 % (37-47) Mean Corpuscular Volume 91.7 fL (80-100) Mean Corpuscular Hemoglobin 31.7 pg (25-34) Mean Corpuscular Hemoglobin Concent 34.6 g/dl (32-36) Platelet Count 271 K/uL (130-400) Mean Platelet Volume 9.1 fL (7.4-10.4) Neutrophils (%) (Auto) 66.7 % Lymphocytes (%) (Auto) 25.2 % Monocytes (%) (Auto) 6.4 % Eosinophils (%) (Auto) 1.2 % Basophils (%) (Auto) 0.2 % Neutrophils # (Auto) 8.40 K/uL (1.4-6.5) Lymphocytes # (Auto) 3.17 K/uL (1.2-3.4) Monocytes # (Auto) 0.81 K/uL (0.11-0.59) Eosinophils # (Auto) 0.15 K/uL (0-0.5) Basophils # (Auto) 0.03 K/uL (0-0.2) RDW Standard Deviation 46.5 fL (36.4-46.3) RDW Coefficient of Variation 13.8 % (11.5-14.5) Immature Granulocyte % (Auto) 0.3 % Immature Granulocyte # (Auto) 0.04 K/uL (0.00-0.02) Anion Gap 6.0 mmol/L (3-11) Est Creatinine Clear Calc Drug Dose 121.9 ml/min Estimated GFR () 115.0 Estimated GFR (Non- 99.2 BUN/Creatinine Ratio 10.8 (10-20) Calcium Level 9.5 mg/dl (8.5-10.1) Total Bilirubin 0.5 mg/dl (0.2-1) Direct Bilirubin 0.1 mg/dl (0-0.2) Aspartate Amino Transf (AST/SGOT) 23 U/L (15-37) Alanine Aminotransferase (ALT/SGPT) 77 U/L (12-78) Alkaline Phosphatase 67 U/L (45-117) Total Protein 7.4 gm/dl (6.4-8.2) Albumin 3.7 gm/dl (3.4-5.0) Lipase 77 U/L (73-393) Laboratory results reviewed by me Medications Administered Medications (Trade) Dose Ordered Sig/Taras Route Start Time Stop Time Status Last Admin Dose Admin Sodium Chloride 2,000 ml @ 999 mls/hr Q2H1M STAT IV 08/09/17 19:24 08/09/17 21:24 DC 08/09/17 19:46 999 MLS/HR Metoclopramide HCl (Reglan Inj) 10 mg NOW STAT IV 08/09/17 19:24 08/09/17 19:28 DC 08/09/17 19:47 10 MG Ketorolac Tromethamine (Toradol Inj) 15 mg NOW STAT IV 08/09/17 19:24 08/09/17 19:28 DC 08/09/17 19:47 15 MG Diphenhydramine HCl (Benadryl Inj) 25 mg NOW STAT IV 08/09/17 19:24 08/09/17 19:28 DC 08/09/17 19:47 25 MG Dexamethasone Sodium Phosphate (Dexamethasone Inj Pf) 10 mg NOW ONCE IV 08/09/17 21:45 08/09/17 21:46 DC 08/09/17 21:49 10 MG ED Course 1915: The patient was evaluated in room A2. A complete history and physical exam was performed. 2105: I reassessed the patient at this time. She is feeling better and resting comfortably. I discussed the results and treatment plan with the patient. I answered all pertaining questions that she had. She expressed understanding and verbalized agreement. The patient will be discharged home. Medical Decision I reviewed the patient's past medical history, medications, and the nursing notes as described above. Differential diagnosis: Etiologies such as migraine headache, meningitis, sinusitis, CO exposure, ICH, SAH, infection, tumor, headache, sinus thrombosis, arterial dissection, as well as others were entertained. The patient is a 32 y/o woman with a pmhx of migraines presents to the emergency department with return of her migraines in the setting of being seen in the ED twice this week prior to today's visit for the same with unremarkable w/u including CT head, Lyme screen, and LP per HPI. On arrival the patient is uncomfortable but in NAD, AFVSS. Neuro intact normal cerebellar function with [id number], alternating palms, vayz-[id number]. Neck is supple, FROM. WBC 12 but in the setting of recent prednisone course. Labs otherwise unremarkable. Patient feeling improved after IVF, migraine cocktail. The patient was given additional dose of dexamethasone for additional anti-inflammatory. Findings and plan for follow-up reviewed with patient. Patient agreeable and d/c'd per discharge instructions. Medication Reconcilliation Current Medication List: was personally reviewed by me Blood Pressure Screening Patient's blood pressure: Elevated blood pressure Blood pressure disposition: Elevated BP felt to be situational Impression Primary Impression: Migraine Scribe Attestation The scribe's documentation has been prepared under my direction and personally reviewed by me in its entirety. I confirm that the note above accurately reflects all work, treatment, procedures, and medical decision making performed by me. Departure Information Dispostion Home / Self-Care Referrals Bucky Talamantes M.D. (PCP) Forms HOME CARE DOCUMENTATION FORM, IMPORTANT VISIT INFORMATION, WORK / SCHOOL INSTRUCTIONS Patient Instructions ED Headache Migraine, My [facility] Additional Instructions Please follow up with your neurologist, Dr. Chaudhry, in the next 1-3 days for re- evaluation. Your exam and lab results did not show signs of an emergent condition at this time. Continue your current medications. Drink plenty of fluids to ensure hydration. Return to the emergency department for worsening symptoms as described in the accompanying instructions.
[2017-08-09 19:48] LABS: BASO % 0.2 %; BASO ABS # 0.03 K/uL (0-0.2); EOS % 1.2 %; EOS ABS # 0.15 K/uL (0-0.5); HEMATOCRIT 44.2 % (37-47); HEMOGLOBIN 15.3 g/dL (12.0-16.0); IG# 0.04 K/uL (0.00-0.02); LYMPH % 25.2 %; LYMPH ABS # 3.17 K/uL (1.2-3.4); MEAN CELL VOLUME 91.7 fL (80-100); MEAN CORPUSCULAR HEMOGLOBIN 31.7 pg (25-34); MEAN CORPUSCULAR HGB CONC 34.6 g/dl (32-36); MEAN PLATELET VOLUME 9.1 fL (7.4-10.4); MONO % 6.4 %; MONO ABS # 0.81 K/uL (0.11-0.59); NEUT % 66.7 %; PLATELET COUNT 271 K/uL (130-400); RED CELL DISTRIBUTION WIDTH CV 13.8 % (11.5-14.5); RED CELL DISTRIBUTION WIDTH SD 46.5 fL (36.4-46.3)
[2017-08-09 20:06] LABS: ALBUMIN 3.7 gm/dl (3.4-5.0); CALCIUM 9.5 mg/dl (8.5-10.1); CREATININE 0.78 mg/dl (0.60-1.20); POTASSIUM 4.1 mmol/L (3.5-5.1)
[2017-08-09 20:08] LABS: TOTAL PROTEIN 7.4 gm/dl (6.4-8.2)
[2017-08-09 20:19] LABS: INFLUENZA A PCR Neg for Influ A (NEG); INFLUENZA B PCR Neg for Influ B (NEG)
[2017-08-09] MEDS ORDERED: NAPR500T3 PO (21:21)
[2017-08-09] MEDS ORDERED: MRLP527 PO (21:21)
[2017-08-09] MEDS ORDERED: ESOM1CAP34 PO (21:21)
[2017-08-09] MEDS ORDERED: DEXAMETHASONE **PF** INJ 10 MG/ML VIAL IV ONE (21:45)
[2017-08-09 22:00] VITALS: BP 124/76; PULSE 86; O2SAT 98
== END 2017-08-09 22:01 | disposition home or self-care (01) ==
LOC: C.EDB 18:23 → C.EDA 22:01
DX: G43.909 Migraine, unspecified, not intractable, without status migrainosus (principal); Z87.820 Personal history of traumatic brain injury; F17.210 Nicotine dependence, cigarettes, uncomplicated; Z80.9 Family history of malignant neoplasm, unspecified; Z83.3 Family history of diabetes mellitus; Z82.49 Family history of ischemic heart disease and other diseases of the circulatory system; Z79.899 Other long term (current) drug therapy

== ENCOUNTER → 2017-08-11 | Outpatient (CLI) | payer BC ==
[~2017-08-11] MED LIST changes: +ESOM1CAP34 PO; +METH-307 PO; +MRLP527 PO; +NAPR500T3 PO; +NRN/300 PO; +TRAM-10 PO; +VERA180C2 PO
--- NOTE | 2017-08-11 15:45 | DIAGNOSTIC IMAGING REPORT ---
LUMBAR SPINE W/O CONTRAST CLINICAL HISTORY: 32 years-old Female presenting with BACK PAIN with reticular the, history of surgery 10 years ago, no recent injury, history of fever and cluster headaches. TECHNIQUE: Multisequence, multiplanar MR imaging of the lumbar spine was performed without the use of intravenous contrast. IV contrast: None. COMPARISON: CT of the abdomen and pelvis from 11/18/2016 performed at an outside hospital. FINDINGS: Localizer images: Unremarkable. Normal lumbar lordosis. Vertebral bodies maintain normal height, alignment, and bone marrow signal intensity with the exception of fatty endplate changes anteriorly at the inferior endplate of L5. Intervertebral disc spaces preserved with the exception of L5-S1, where there is disc desiccation and height loss. At this level, an annular fissure and mild left paracentral disc protrusion are noted. This effaces the left lateral recess at L5-S1 and results in mass effect on the transiting left S1 nerve root. This abnormality is likely subacute given the presence of fatty endplate changes at L5 (Modic type II). No significant neural foraminal narrowing on the left results at L5-S1. The remaining levels demonstrate no significant spinal canal or neural foraminal narrowing. Spinal cord ends in good position at L1. Cauda equina normal in morphology. Paraspinal soft tissues within normal limits. IMPRESSION: 1. Paracentral left disc protrusion at L5-S1 with an annular fissure and disc height loss. Resultant effacement of the left lateral recess and mass effect on the transiting left S1 nerve root. Electronically signed by: Edilson Collado M.D. 08/11/2017 3:44 PM Dictated Date/Time: 08/11/2017 3:40 PM
== END | disposition home or self-care (01) ==
LOC: C.MRIBC 14:59
PROVIDERS: ATTEND Family Medicine
DX: M51.27 Other intervertebral disc displacement, lumbosacral region (principal)

== ENCOUNTER → 2017-08-18 | Outpatient (CLI) | payer BC ==
[~2017-08-18] MED LIST changes: +GADAVIST IV PRN
--- NOTE | 2017-08-18 10:40 | DIAGNOSTIC IMAGING REPORT ---
BRAIN COMBO FOR TRIGEMINAL CLINICAL HISTORY: CONGNITIVE DISORDER trigeminal neuralgia TECHNIQUE: Multi axial MRI acquisition COMPARISON STUDY: None FINDINGS: Diffusion-weighted images are negative for an acute ischemic event. Several very small foci of increased signal are identified in the coronal FLAIR images adjacent to the anterior horns lateral ventricles. These are nonspecific although can be seen with the patient with a history of headache. Imaging of system is midline. Signal characteristics of the remainder of the brain are unremarkable. No abnormal postcontrast enhancement. Sella and parasellar regions are unremarkable. The pituitary appears unremarkable. IMPRESSION: 1. Several very small foci of increased signal adjacent to the anterior horns of the lateral ventricles. 2. This is most consistent with patient's history of chronic/migraine headaches. 3. Study is otherwise normal. The above report was generated using voice recognition software. It may contain grammatical, syntax or spelling errors. Electronically signed by: Clement Cha M.D. 08/18/2017 10:39 AM Dictated Date/Time: 08/18/2017 10:34 AM
== END | disposition home or self-care (01) ==
LOC: C.MRIBC 09:33
PROVIDERS: ATTEND Psychiatry & Neurology Neurology
DX: G51.3 Clonic hemifacial spasm (principal); F09 Unspecified mental disorder due to known physiological condition

== ENCOUNTER → 2017-09-13 | Day surgery (SDC) | payer BC ==
[2017-08-18 13:46] VITALS: Ht 172.7 cm; Wt 94.1 kg
[~2017-09-13] VITALS: Ht 172.7 cm; Wt 94.1 kg
[~2017-09-13] MED LIST changes: +CYM/30 PO; -GADAVIST IV PRN; +IOPAMIDOL INJ 61% 15 ML VIAL ONE; +LIDOCAINE HCL 1% MPF 5 ML VIAL ONE; -NAPR500T3 PO; +SODIUM CHLORIDE 0.9% INJ 10 ML VIAL ONE
--- NOTE | 2017-09-13 14:42 | History & Physical Bridge - SC ---
H&P Re-Evaluation Bridge Note: I have examined the patient, reviewed the History & Physical and in the interval since the performance of the History & Physical I have noted the following changes of clinical significance: No changes noted
--- NOTE | 2017-09-13 15:03 | [facility] Post Operative Brief Note ---
Immediate Operative Summary Operative Date Sep 13, 2017. Pre-Operative Diagnosis L5-S1 ANNULAR TEAR W/ LEFT LOWER EXTREMITY RADICULOPATHY. Post-Operative Diagnosis SAME Procedure(s) Performed LUMBAR EPIDURAL STEROID INJECTION Surgeon DR. Fernanda PURI Logging Engineer Surgeon(s) NONE Estimated Blood Loss 0 Findings Consistent with Post-Op Diagnosis Specimens NA Drains None Anesthesia Type Local Complication(s) none Disposition Disposition:
--- NOTE | 2017-09-13 15:04 | Discharge Instructions ---
Discharge Instructions Date of Service Sep 13, 2017. Visit Reason for Visit: Lumbar Radiculopathy Discharge Discharge Diagnosis / Problem: LEFT LEG PAIN Discharge Goals Goal(s): Decrease discomfort, Improve function Activity Recommendations Activity Limitations: resume your previous activity Anesthesia . Post Anesthesia Instructions: If you have had General Anesthesia or IV Sedation: * Do not drive today. * Resume driving when surgeon permits. * Do not make important decisions or sign legal documents today. * Call surgeon for: 1. Temperature elevations greater than 101 degrees F. 2. Uncontrollable pain. 3. Excessive bleeding. 4. Persistent nausea and vomiting. 5. Medication intolerance (nausea, vomiting or rash). * For nausea and vomiting use only clear liquids such as: tea, soda, bouillon until nausea subsides, then gradually increase diet as tolerated. * If you have any concerns or questions, call your surgeon's office. If physician is unavailable and it is an emergency, call 911 or go to the nearest emergency room. . Diet Recommendations Recommended Home Diet: resume previous diet Procedures Procedures Performed: LUMBAR EPIDURAL STEROID INJECTION Pending Studies Studies pending at discharge: no Medical Emergencies . Who to Call and When: Medical Emergencies: If at any time you feel your situation is an emergency, please call 911 immediately. . Non-Emergent Contact Non-Emergency issues call your: Specialist . . "Provider Documentation" section prepared by Hunter Mae. .
[2017-09-13 15:06] VITALS: TEMP 37.5
--- NOTE | 2017-09-13 15:26 | OPERATIVE REPORT ---
DATE OF OPERATION: 09/13/2017 PREOPERATIVE DIAGNOSIS: L5-S1 annular tear with left lower extremity radiculopathy. POSTOPERATIVE DIAGNOSIS: Same. PROCEDURE: Left paramedian L5-S1 interlaminar epidural steroid injection under fluoroscopic guidance. INDICATIONS: The patient is a 32-year-old white female who presented with a 3-month history of back pain that occurred around . MRI revealed an annular tear at L5-S1. She has failed 6 weeks of physical therapy and plateaued and she is presenting today for an epidural injection to provide her with relief of ongoing left leg and lumbar pain. PHYSICAL EXAMINATION: Pleasant female, moving about slowly. Lumbar paraspinal muscles are sore to touch. Positive sciatic notch sensitivity. Pain inhibition with straight leg testing of her left lower extremity. Positive seated straight leg raise. CONSENT: Verbal and written consent was obtained from the patient. Risks and benefits were reviewed. Risks include but are not limited to epidural abscess, epidural hematoma, allergic reaction, dural puncture. The patient wishes to proceed. PROCEDURE IN DETAIL: The patient was taken back to the special procedures room of [facility]. She was maintained in a prone position. Backside was cleansed with Betadine x3 and a dry sterile dressing was applied. Fluoroscope was used to identify the L5-S1 interlaminar space. Overlying skin was anesthetized with 4 mL of lidocaine 1% with a 25-gauge 1-1/2-inch needle. A 22-gauge 3-1/2-inch Tuohy needle was then directed down toward the interlaminar space. It was advanced under lateral fluoroscopic guidance and loss of resistance was noted at a depth of 6.5 cm. Isovue-300 contrast 1 mL was injected which demonstrated epidural uptake pattern. She then underwent injection after negative aspiration of 40 mg of Depo-Medrol and 4 mL of preservative-free sodium chloride. Injection was well tolerated and reproduced a familiar transient radicular sensation down the left leg. DISPOSITION: 1. The patient is taken out into the discharge recovery area where she will be discharged home once discharge criteria have been met. 2. Follow up in the [facility] office in 4 weeks' time. I attest to the content of the Intraoperative Record and any orders documented therein. Any exception s are noted below.
[2017-09-13 15:27] VITALS: BP 121/84; PULSE 96; O2SAT 100
== END | disposition home or self-care (01) ==
LOC: X.SURG 13:48
PROVIDERS: ATTEND Physical Medicine & Rehabilitation
DX: M51.37 Other intervertebral disc degeneration, lumbosacral region (principal); M54.16 Radiculopathy, lumbar region; F17.200 Nicotine dependence, unspecified, uncomplicated; Z82.49 Family history of ischemic heart disease and other diseases of the circulatory system; Z82.3 Family history of stroke; Z80.9 Family history of malignant neoplasm, unspecified; Z83.3 Family history of diabetes mellitus

== ENCOUNTER 2017-10-23 08:22 | Emergency (ER) | payer BC ==
[~2017-10-23] VITALS: Ht 172.7 cm; Wt 98.4 kg
[~2017-10-23 08:22] MED LIST changes: -IOPAMIDOL INJ 61% 15 ML VIAL ONE; -LIDOCAINE HCL 1% MPF 5 ML VIAL ONE; -SODIUM CHLORIDE 0.9% INJ 10 ML VIAL ONE
[2017-10-23 08:26] VITALS: TEMP 36.7; O2SAT 97; Ht 172.7 cm; Wt 98.4 kg
--- NOTE | 2017-10-23 09:01 | DIAGNOSTIC IMAGING REPORT ---
CHEST ONE VIEW PORTABLE CLINICAL HISTORY: 32 years-old Female presenting with CHEST PAIN. TECHNIQUE: Portable upright AP view of the chest was obtained. COMPARISON: 08/04/2017. FINDINGS: Cardiomediastinal silhouette normal. Lungs and pleural spaces clear. Osseous structures normal. Upper abdomen normal. IMPRESSION: 1. No acute cardiopulmonary disease. Electronically signed by: Edilson Collado M.D. 10/23/2017 8:59 AM Dictated Date/Time: 10/23/2017 8:59 AM
--- NOTE | 2017-10-23 09:03 | EMERGENCY ROOM VISIT NOTE ---
History Report prepared by Bakari: Tyler Ambrose Under the Supervision of: Dr. Mariusz Manuel M.D. First contact with patient: 08:34 Chief Complaint: CARDIAC ASSESSMENT Stated Complaint: CHEST PAIN/HEADACHE Nursing Triage Summary: pt reports since last monday she has had intermittent chest pain. pt reports she has also had cluster headche today. pt reports last she was taken off her verapamil. History of Present Illness The patient is a 32 year old female who presents to the Emergency Room with complaints of intermittent chest pain beginning five days ago. She describes her pain as occasionally feeling like a "pressure", and sometimes feeling "sharp ". She localizes her pain to the center of her chest. The patient states that her pain occasionally radiates to her left groin, right shoulder, right jaw, or back. Her pain is improved with sitting down. Her pain is worsened with exertion. The patient also complains of a headache. She estimates that her pain is present for 15-20 minutes at a time. The patient has a history of cluster headaches, and was started on supplemental oxygen for them two months ago. She states that her current headaches feels like her typical cluster headache. She was started on Verapamil six weeks ago, but was taken off of it last week for leg swelling and chest pain. The patient denies chance of . She denies recent travel. She has no cardiac history, or history of blood clots. The patient was seen by her PCP for symptoms five days ago, and was told that her symptoms may be muscular. Source of History: patient, spouse/significant other Onset: five days ago Position: chest Symptom Intensity: 15-20 minute long episodes Quality: pressure, sharp Timing: intermittent Modifying Factors (Worsening): exertion Modifying Factors (Relieving): other (sitting down) Associated Symptoms: + headache Review of Systems See HPI for pertinent positives & negatives. A total of 10 systems reviewed and were otherwise negative. Past Medical & Surgical Medical Problems: (1) Stomach problems Old medical records were reviewed. Nurse's notes were reviewed and I agree with. Family History Cancer Diabetes mellitus Heart disease Hypertension Social History Smoking Status: Current Every Day Smoker Alcohol Use: none Drug Use: none Marital Status: in relationship Housing Status: lives with significant other Occupation Status: employed Current/Historical Medications Scheduled Amphetamine-Dextroamphetamine 10MG (Adderall 10MG), 10 MG PO BID Baclofen (Baclofen), 10-20 MG PO BID Esomeprazole Magnesium (Esomeprazole Magnesium), 40 MG PO QAM Etonogestrel (Nexplanon), 68 MG INTRAD CONTINOUS Polyethylene (Polyethylene Glycol 3350), 17 GM PO UD Allergies Coded Allergies: Prednisone (Unverified Adverse Reaction, Unknown, GI UPSET, 10/23/17) Physical Exam Vital Signs Date Time Temp Pulse Resp B/P (MAP) Pulse Ox O2 Delivery O2 Flow Rate FiO2 10/23/17 11:14 93 16 120/79 96 Room Air 10/23/17 09:48 94 18 125/87 98 Room Air 10/23/17 08:46 123 10/23/17 08:43 100 18 127/92 100 Room Air 10/23/17 08:26 97 Room Air 10/23/17 08:26 97 Room Air 10/23/17 08:26 36.7 102 18 137/83 97 Room Air Physical Exam General: Non-ill appearing young female in no acute distress. HEENT: Normal cephalic atraumatic. Pupils are equal round and reactive to light. Extraocular movements are intact. Oropharynx is pink with moist mucous membranes. No swelling of the mouth lips or tongue. Neck: Supple with a midline trachea. No meningeal signs or stiffness, no JVD or bruits. No Stridor. Chest: Tender to palpation centrally. Clear to auscultation bilaterally. No wheezes or rhonchi. No increased work of breathing. Heart: regular rate and rhythm. Abdomen: Soft nontender, nondistended without rebound guarding or rigidity. Extremities: No cyanosis clubbing or edema. No calf tenderness or assymetry Spine/Back. Non tender to palpation. No CVA tenderness Skin: Good turgor without rashes. Neurologic exam: Cranial nerves two through 12 are intact. Motor and sensation are intact and symmetrical throughout. Medical Decision & Procedures ER Provider Diagnostic Interpretation: Radiology results as stated below per my review and radiologist interpretation: CHEST ONE VIEW PORTABLE FINDINGS: Cardiomediastinal silhouette normal. Lungs and pleural spaces clear. Osseous structures normal. Upper abdomen normal. IMPRESSION: 1. No acute cardiopulmonary disease. Electronically signed by: Edilson Collado M.D. 10/23/2017 8:59 AM Laboratory Results 10/23/17 08:55 Red Blood Count 4.47, Mean Corpuscular Volume 91.1, Mean Corpuscular Hemoglobin 32.7, Mean Corpuscular Hemoglobin Concent 35.9, Mean Platelet Volume 9.1, Neutrophils (%) (Auto) 62.5, Lymphocytes (%) (Auto) 28.2, Monocytes (%) (Auto) 8.0, Eosinophils (%) (Auto) 0.9, Basophils (%) (Auto) 0.3, Neutrophils # (Auto) 4.89, Lymphocytes # (Auto) 2.21, Monocytes # (Auto) 0.63, Eosinophils # (Auto) 0.07, Basophils # (Auto) 0.02 10/23/17 08:55 Test 10/23/17 08:55 10/23/17 08:59 White Blood Count 7.83 K/uL (4.8-10.8) Red Blood Count 4.47 M/uL (4.2-5.4) Hemoglobin 14.6 g/dL (12.0-16.0) Hematocrit 40.7 % (37-47) Mean Corpuscular Volume 91.1 fL (80-100) Mean Corpuscular Hemoglobin 32.7 pg (25-34) Mean Corpuscular Hemoglobin Concent 35.9 g/dl (32-36) Platelet Count 288 K/uL (130-400) Mean Platelet Volume 9.1 fL (7.4-10.4) Neutrophils (%) (Auto) 62.5 % Lymphocytes (%) (Auto) 28.2 % Monocytes (%) (Auto) 8.0 % Eosinophils (%) (Auto) 0.9 % Basophils (%) (Auto) 0.3 % Neutrophils # (Auto) 4.89 K/uL (1.4-6.5) Lymphocytes # (Auto) 2.21 K/uL (1.2-3.4) Monocytes # (Auto) 0.63 K/uL (0.11-0.59) Eosinophils # (Auto) 0.07 K/uL (0-0.5) Basophils # (Auto) 0.02 K/uL (0-0.2) RDW Standard Deviation 45.4 fL (36.4-46.3) RDW Coefficient of Variation 13.7 % (11.5-14.5) Immature Granulocyte % (Auto) 0.1 % Immature Granulocyte # (Auto) 0.01 K/uL (0.00-0.02) D-Dimer 230 ug/L FEU (0-500) Anion Gap 6.0 mmol/L (3-11) Est Creatinine Clear Calc Drug Dose 114.4 ml/min Estimated GFR () 103.6 Estimated GFR (Non- 89.4 BUN/Creatinine Ratio 11.5 (10-20) Calcium Level 9.0 mg/dl (8.5-10.1) Total Bilirubin 0.4 mg/dl (0.2-1) Direct Bilirubin < 0.1 mg/dl (0-0.2) Aspartate Amino Transf (AST/SGOT) 23 U/L (15-37) Alanine Aminotransferase (ALT/SGPT) 37 U/L (12-78) Alkaline Phosphatase 73 U/L (45-117) Total Protein 7.1 gm/dl (6.4-8.2) Albumin 3.5 gm/dl (3.4-5.0) Lipase 106 U/L (73-393) Human Chorionic Gonadotropin, Qual NEG (NEG) Bedside Troponin I < 0.030 ng/ml (0-0.045) Laboratory studies as stated above per my review. ECG Per My Interpretation Indication: chest pain Rate (beats per minute): 107 Rhythm: sinus tachycardia Findings: nonspecific-ST abn, other (No ST elevations. No PVC. ) Comparison ECG Date: no prior available Change: ECG obtained here shows a normal sinus rhythm with sinus arrhythmia. Rate of 82 bpm[address] Non-specific ST/T wave abnormalities. No acute ischemic changes seen. Rate has decreased compared to prior ECG. ED Course 0840: Past medical records reviewed. The patient was evaluated in room A12B, and a complete history and physical examination were performed. 1125: Upon reevaluation, the patient is resting comfortably. I discussed the results and treatment plan with her. She verbalized agreement of the treatment plan. The patient was discharged home. Medical Decision Differentials include, but are not limited to; cardiac disease, arrhythmia, costochondritis, pneumothorax, PE, anxiety, and cluster headache. This patient comes in as described above. She was placed in room A12. She has been having chest pain for almost a week now. She also has been having cluster headaches has been going on for months. She denies a current cluster headache however shortly after arriving she started having 1 and was placed on oxygen which is her typical treatment. she was offered pain medication but declined EKGs did not show ischemic changes. Chest x-ray multiple blood testing was obtained to evaluate from a cardiac pulmonary and other standpoint. She was reassessed frequently. Her cluster headache felt better after receiving oxygen which she has been treated at home. EKG was unremarkable. Cardiac biomarkers was negative. D-dimer was negative and a low pretest probably setting makes PE highly unlikely. She has no acute electrolyte or metabolic abnormalities. She does not suggest a GI cause. This may be more musculoskeletal/costochondritis. It has been going on for about a week. I do think she can go home and follow- up with her regular doctor this point. The patient agrees. I encouraged her follow-up with her primary care physician next 1-2 days for recheck return to the ER if: Increasing pain, worsening of symptoms, any new problems or concerns. The patient and her boyfriend were happy with the plan and she was discharged to home. Medication Reconcilliation Current Medication List: was personally reviewed by me Blood Pressure Screening Patient's blood pressure: Normal blood pressure Blood pressure disposition: Did not require urgent referral Impression Primary Impression: Precordial chest pain Additional Impression: Cluster headache Scribe Attestation The scribe's documentation has been prepared under my direction and personally reviewed by me in its entirety. I confirm that the note above accurately reflects all work, treatment, procedures, and medical decision making performed by me. Departure Information Dispostion Home / Self-Care Referrals Bucky Talamantes M.D. (PCP) Patient Instructions My [facility] Additional Instructions Rest Use NSAID if needed REturn if: worsening of symptoms, fever, increasing pain, shortness of breath, any new problems Follow-up with your doctor this week for recheck Problem Qualifiers
[2017-10-23 09:07] LABS: BASO % 0.3 %; BASO ABS # 0.02 K/uL (0-0.2); EOS % 0.9 %; EOS ABS # 0.07 K/uL (0-0.5); HEMATOCRIT 40.7 % (37-47); HEMOGLOBIN 14.6 g/dL (12.0-16.0); IG# 0.01 K/uL (0.00-0.02); LYMPH % 28.2 %; LYMPH ABS # 2.21 K/uL (1.2-3.4); MEAN CELL VOLUME 91.1 fL (80-100); MEAN CORPUSCULAR HEMOGLOBIN 32.7 pg (25-34); MEAN CORPUSCULAR HGB CONC 35.9 g/dl (32-36); MEAN PLATELET VOLUME 9.1 fL (7.4-10.4); MONO ABS # 0.63 K/uL (0.11-0.59); NEUT % 62.5 %; NEUT ABS # 4.89 K/uL (1.4-6.5); PLATELET COUNT 288 K/uL (130-400); RED CELL DISTRIBUTION WIDTH CV 13.7 % (11.5-14.5); RED CELL DISTRIBUTION WIDTH SD 45.4 fL (36.4-46.3); WHITE BLOOD COUNT 7.83 K/uL (4.8-10.8)
[2017-10-23 09:23] LABS: ALBUMIN 3.5 gm/dl (3.4-5.0); ALT/SGPT 37 U/L (12-78); AST/SGOT 23 U/L (15-37); BLOOD UREA NITROGEN 10 mg/dl (7-18); CARBON DIOXIDE 25 mmol/L (21-32); CREATININE 0.85 mg/dl (0.60-1.20); GLUCOSE 86 mg/dl (70-99); LIPASE 106 U/L (73-393); POTASSIUM 3.9 mmol/L (3.5-5.1); SODIUM 139 mmol/L (136-145)
[2017-10-23 09:26] LABS: ALKALINE PHOSPHATASE 73 U/L (45-117); TOTAL PROTEIN 7.1 gm/dl (6.4-8.2)
[2017-10-23] MEDS ORDERED: AMPH10TA2 PO (09:48)
[2017-10-23] MEDS ORDERED: LRS10 PO (09:48)
[2017-10-23 11:14] VITALS: BP 120/79; PULSE 93; O2SAT 96
== END 2017-10-23 11:20 | disposition home or self-care (01) ==
LOC: EDBD 08:22 → C.EDA 08:24
DX: R07.2 Precordial pain (principal); G44.009 Cluster headache syndrome, unspecified, not intractable; K92.9 Disease of digestive system, unspecified; F17.200 Nicotine dependence, unspecified, uncomplicated; Z88.8 Allergy status to other drugs, medicaments and biological substances

== ENCOUNTER → 2018-02-12 | Outpatient (CLI) | payer BC ==
[~2018-02-12] MED LIST changes: -AMPH10CA3 PO; +AMPH10TA2 PO; -CYM/30 PO; +DIVA500T3 PO; +LRS10 PO; -METH-307 PO; -NRN/300 PO; +SUMA6KIT SQ; +TOPI1CAP12 PO; -TRAM-10 PO; -VERA180C2 PO
[2018-02-12 13:16] LABS: BASO % 0.3 %; BASO ABS # 0.03 K/uL (0-0.2); EOS % 1.5 %; EOS ABS # 0.14 K/uL (0-0.5); HEMATOCRIT 43.5 % (37-47); HEMOGLOBIN 15.2 g/dL (12.0-16.0); IG# 0.03 K/uL (0.00-0.02); LYMPH % 21.2 %; LYMPH ABS # 2.01 K/uL (1.2-3.4); MEAN CELL VOLUME 92.9 fL (80-100); MEAN CORPUSCULAR HEMOGLOBIN 32.5 pg (25-34); MEAN CORPUSCULAR HGB CONC 34.9 g/dl (32-36); MEAN PLATELET VOLUME 9.9 fL (7.4-10.4); MONO % 6.3 %; NEUT % 70.4 %; NEUT ABS # 6.68 K/uL (1.4-6.5); PLATELET COUNT 303 K/uL (130-400); RED CELL DISTRIBUTION WIDTH CV 14.1 % (11.5-14.5); RED CELL DISTRIBUTION WIDTH SD 48.1 fL (36.4-46.3); WHITE BLOOD COUNT 9.49 K/uL (4.8-10.8)
[2018-02-12 14:07] LABS: ALBUMIN 3.8 gm/dl (3.4-5.0); ALKALINE PHOSPHATASE 60 U/L (45-117); ALT/SGPT 27 U/L (12-78); AST/SGOT 17 U/L (15-37); BLOOD UREA NITROGEN 4 mg/dl (7-18); CALCIUM 8.6 mg/dl (8.5-10.1); CARBON DIOXIDE 25 mmol/L (21-32); GLUCOSE 89 mg/dl (70-99); POTASSIUM 3.6 mmol/L (3.5-5.1); SODIUM 139 mmol/L (136-145); TOTAL PROTEIN 7.4 gm/dl (6.4-8.2)
== END | disposition home or self-care (01) ==
LOC: C.LABBC 11:51
PROVIDERS: ATTEND Physician Assistant
DX: G44.009 Cluster headache syndrome, unspecified, not intractable (principal)